=== PATIENT | male | born 1985 | race Hispanic/Latino ===

== ENCOUNTER 2018-12-05 11:22 | Emergency (ER) | payer SELFPAY ==
--- OUTSIDE RECORDS SUMMARY | 2018-12-05 11:26 | XMS REPORT ---
:1985 Author Organization eClinicalWorks Care Team Providers Name Role Phone Arnaud Mitchell Provider Role Unavailable Allergies, Adverse Reactions, Alerts Substance Reaction Event Type N.K.D.A. Info Not Available Non Drug Allergy Problems Problem Type Condition Code Onset Dates Condition Status Assessment Pain in joint of left knee M25.562 Active Assessment Prepatellar bursitis of left knee M70.42 Active Medications Medication Code System Code Instructions Start Date End Date Status Dosage [facility] [id number] 7.5 MG Orally Jan 06, Feb 05, Active 1 tablet Once a day 2017 2017 Results No Known Results Summary Purpose eClinicalWorks Submission
[2018-12-05 13:40] LABS: Absolute Lymphocytes (CBC) 0.7 K/uL (0.7-4.9); Basophils % 0.2 % (0-1.3); Eosinophils % 0.8 % (0-4.4); Hematocrit 46.2 % (39.6-49.0); Lymphocytes % 5.9 % (15.3-44.8); MPV 10.1 fL (7.6-11.3); Monocytes % 7.2 % (3.3-12.3); RBC Red Blood Cell Count 4.99 M/uL (4.33-5.43)
[2018-12-05 13:55] LABS: ALT/SGPT 35 U/L (12-78); AST/SGOT 19 U/L (15-37); Albumin 4.1 g/dL (3.4-5.0); Alkaline Phosphatase 61 U/L (45-117); BUN Blood Urea Nitrogen 14 mg/dL (7-18); Bicarbonate 26 mmol/L (21-32); Bilirubin Direct 0.2 mg/dL (0-0.2); Bilirubin Total 1.3 mg/dL (0.2-1.0); Glucose Level 99 mg/dL (74-106); Lipase 54 U/L (73-393); Potassium 3.5 mmol/L (3.5-5.1); Protein, Total 7.2 g/dL (6.4-8.2); Sodium Level 140 mmol/L (136-145)
[2018-12-05] MEDS ORDERED: DICYCLOMINE HCL 10 MG CAP ONE (14:12)
[2018-12-05] MEDS ORDERED: ONDANSETRON 4 MG/2 ML VIAL ONE (14:12)
[2018-12-05] MEDS ORDERED: NA CHLORIDE 0.9% 1,000 ML ONE (14:13)
--- NOTE | 2018-12-05 14:23 | RAD REPORT ---
EXAM DESCRIPTION: US - Abdomen Exam Limited - 12/05/2018 2:17 pm CLINICAL HISTORY: Abdominal pain. COMPARISON: None. FINDINGS: The gallbladder wall is not thickened. A gallstone is not seen. The biliary tree is normal caliber. Fatty liver suspected IMPRESSION: Unremarkable gallbladder ultrasound.
[2018-12-05 14:50] LABS: Blood Morphology Comment NOT SEEN (NOT SEEN); Platelet Estimate ADEQ; Urine White Blood Cell Casts OK
--- NOTE | 2018-12-05 14:51 | ER ---
Nurse's Notes [facility] Name: Jordan Casillas Age: 33 yrs Sex: Male : 1985 Arrival Date: 12/05/2018 Time: 11:26 Bed 25 Private MD: Diagnosis: Generalized abdominal pain;Nausea and vomiting;Diarrhea, unspecified Presentation: 12/05 11:52 Presenting complaint: Patient states: generalized abd pain, nausea, vomiting, diarrhea aa5 that began last night. Transition of care: patient was not received from another setting of care. Onset of symptoms was November 2018. Risk Assessment: Do you want to hurt yourself or someone else? Patient reports no desire to harm self or others. Initial Sepsis Screen: Does the patient meet any 2 criteria? No. Patient's initial sepsis screen is negative. Does the patient have a suspected source of infection? No. Patient's initial sepsis screen is negative. Care prior to arrival: None. 11:52 Method Of Arrival: Ambulatory aa5 11:52 Acuity: SHASHANK 3 aa5 Historical: - Allergies: 11:53 NKA; aa5 - PMHx: 11:53 None; aa5 - PSHx: 11:53 None; aa5 - Immunization history:: Adult Immunizations unknown. - Social history:: Smoking status: Patient/guardian denies using tobacco. - Ebola Screening: : No symptoms or risks identified at this time. Screenin:02 Abuse screen: Denies threats or abuse. Denies injuries from another. Nutritional mg2 screening: No deficits noted. Tuberculosis screening: No symptoms or risk factors identified. Fall Risk IV access (20 points). Assessment: 14:00 General: Appears in no apparent distress. comfortable, Behavior is calm, cooperative. mg2 Pain: Complains of pain in left upper quadrant and right upper quadrant Pain does not radiate. Pain currently is 5 out of 10 on a pain scale. Quality of pain is described as aching, Pain began gradually, 1 day ago. Is intermittent. Neuro: Level of Consciousness is awake, alert, obeys commands, Oriented to person, place, time, situation. Cardiovascular: Capillary refill < 3 seconds Patient's skin is warm and dry. Respiratory: Airway is patent Respiratory effort is even, unlabored, Respiratory pattern is regular, symmetrical. GI: Bowel sounds present X 4 quads. Abd is soft and non tender X 4 quads. : No signs and/or symptoms were reported regarding the genitourinary system. EENT: No signs and/or symptoms were reported regarding the EENT system. Derm: Skin is intact, is healthy with good turgor, Skin is pink, warm \T\ dry. normal. Musculoskeletal: Circulation, motion, and sensation intact. Capillary refill < 3 seconds. Vital Signs: 11:53 BP 124 / 66; Pulse 89; Resp 16 S; Temp 99.0(TE); Pulse Ox 97% on R/A; Weight 97.52 kg aa5 (R); Height 5 ft. 10 in. (177.80 cm) (R); Pain 6/10; 14:04 Pulse 78; Resp 18; Pulse Ox 100% on R/A; mg2 11:53 Body Mass Index 30.85 (97.52 kg, 177.80 cm) aa5 ED Course: 11:26 Patient arrived in ED. rg4 11:52 Triage completed. aa5 11:52 Arm band placed on. aa5 12:54 Leann Palomo FNP-C is PHCP. kb 12:55 Jose Luis Walsh MD is Attending Physician. kb 13:02 Sunil Fonseca, JUAN JOSE is Primary Nurse. mg2 14:03 Patient has correct armband on for positive identification. mg2 14:03 No provider procedures requiring assistance completed. Inserted saline lock: 20 gauge mg2 in left antecubital area, using aseptic technique. Blood collected. 14:18 US Abdomen Limited In Process Unspecified. EDMS 14:58 IV discontinued, intact, bleeding controlled, No redness/swelling at site. Pressure mg2 dressing applied. Administered Medications: 14:00 Drug: Zofran 4 mg Route: IVP; Site: left antecubital; mg2 14:52 Follow up: Response: No adverse reaction; Pain is decreased ca1 14:00 Drug: NS 0.9% 1000 ml Route: IV; Rate: 1000 ml; Site: left antecubital; mg2 14:52 Follow up: Response: No adverse reaction; IV Status: Completed infusion ca1 14:00 Drug: Bentyl 20 mg Route: PO; mg2 14:52 Follow up: Response: No adverse reaction; Pain is decreased ca1 Outcome: 14:51 Discharge ordered by . kb 14:58 Discharged to home ambulatory. mg2 14:58 Condition: stable 14:58 Discharge instructions given to patient, Instructed on discharge instructions, follow up and referral plans. medication usage, Demonstrated understanding of instructions, follow-up care, medications, Prescriptions given X 2. 15:01 Patient left the ED. mg2 Signatures: Dispatcher [employer] EDMS Leann Palomo, MOBILE HOME LABORER-C MOBILE HOME LABORER-Tawanna Mena RN RN aa5 Tegan Alarcon4 Sunil Fonseca RN RN mg2 Prisca Colon RN RN ca1
--- NOTE | 2018-12-05 14:52 | EDPHYS ---
Physician Documentation [facility] Name: Jordan Casillas Age: 33 yrs Sex: Male : 1985 Arrival Date: 12/05/2018 Time: 11:26 Bed 25 Private MD: ED Physician Jose Luis Walsh HPI: 12/05 13:55 This 33 yrs old Male presents to ER via Ambulatory with complaints of kb Abdominal Pain. 13:55 The patient presents with abdominal pain in the upper abdomen. Onset: The kb symptoms/episode began/occurred last night. The symptoms do not radiate. Associated signs and symptoms: Pertinent positives: diarrhea, nausea. The symptoms are described as constant. Modifying factors: The symptoms are alleviated by nothing, the symptoms are aggravated by nothing. Severity of pain: At its worst the pain was mild in the emergency department the pain is unchanged. The patient has not experienced similar symptoms in the past. The patient has not recently seen a physician. Historical: - Allergies: 11:53 NKA; aa5 - PMHx: 11:53 None; aa5 - PSHx: 11:53 None; aa5 - Immunization history:: Adult Immunizations unknown. - Social history:: Smoking status: Patient/guardian denies using tobacco. - Ebola Screening: : No symptoms or risks identified at this time. ROS: 13:55 Constitutional: Negative for fever, chills, and weight loss, Cardiovascular: Negative kb for chest pain, palpitations, and edema, Respiratory: Negative for shortness of breath, cough, wheezing, and pleuritic chest pain, Back: Negative for injury and pain, MS/Extremity: Negative for injury and deformity, Skin: Negative for injury, rash, and discoloration, Neuro: Negative for headache, weakness, numbness, tingling, and seizure. 13:55 Abdomen/GI: Positive for abdominal pain, nausea, diarrhea. Exam: 13:55 Constitutional: This is a well developed, well nourished patient who is awake, alert, kb and in no acute distress. Head/Face: Normocephalic, atraumatic. ENT: Nares patent. No nasal discharge, no septal abnormalities noted. Tympanic membranes are normal and external auditory canals are clear. Oropharynx with no redness, swelling, or masses, exudates, or evidence of obstruction, uvula midline. Mucous membranes moist. Neck: Trachea midline, no thyromegaly or masses palpated, and no cervical lymphadenopathy. Supple, full range of motion without nuchal rigidity, or vertebral point tenderness. No Meningismus. Chest/axilla: Normal chest wall appearance and motion. Nontender with no deformity. No lesions are appreciated. Cardiovascular: Regular rate and rhythm with a normal S1 and S2. No gallops, murmurs, or rubs. Normal PMI, no JVD. No pulse deficits. Respiratory: Lungs have equal breath sounds bilaterally, clear to auscultation and percussion. No rales, rhonchi or wheezes noted. No increased work of breathing, no retractions or nasal flaring. Skin: Warm, dry with normal turgor. Normal color with no rashes, no lesions, and no evidence of cellulitis. MS/ Extremity: Pulses equal, no cyanosis. Neurovascular intact. Full, normal range of motion. Neuro: Awake and alert, GCS 15, oriented to person, place, time, and situation. Cranial nerves II-XII grossly intact. Motor strength 5/5 in all extremities. Sensory grossly intact. Cerebellar exam normal. Normal gait. 13:55 Abdomen/GI: Inspection: abdomen appears normal, Bowel sounds: normal, in all quadrants, Palpation: soft, in all quadrants, mild abdominal tenderness, in the right upper quadrant and left upper quadrant. Vital Signs: 11:53 BP 124 / 66; Pulse 89; Resp 16 S; Temp 99.0(TE); Pulse Ox 97% on R/A; Weight 97.52 kg aa5 (R); Height 5 ft. 10 in. (177.80 cm) (R); Pain 6/10; 14:04 Pulse 78; Resp 18; Pulse Ox 100% on R/A; mg2 11:53 Body Mass Index 30.85 (97.52 kg, 177.80 cm) aa5 MDM: 13:13 Patient medically screened. kb 13:56 Data reviewed: vital signs, nurses notes. Data interpreted: Pulse oximetry: on room air kb is 97 %. Interpretation: normal. 14:30 Counseling: I had a detailed discussion with the patient and/or guardian regarding: the kb historical points, exam findings, and any diagnostic results supporting the discharge/admit diagnosis, lab results, radiology results, the need for outpatient follow up, a family practitioner, to return to the emergency department if symptoms worsen or persist or if there are any questions or concerns that arise at home. 14:46 ED course: Pt feeling better after treatment.. kb 12/05 13:21 Order name: Basic Metabolic Panel; Complete Time: 13:57 kb 12/05 13:21 Order name: CBC with Diff; Complete Time: 14:54 kb 12/05 13:21 Order name: Hepatic Function; Complete Time: 13:57 kb 12/05 13:21 Order name: Lipase; Complete Time: 13:57 kb 12/05 13:47 Order name: CBC Smear Scan; Complete Time: 14:54 EDMS 12/05 13:57 Order name: US Abdomen Limited; Complete Time: 14:30 kb 12/05 13:21 Order name: IV Saline Lock; Complete Time: 13:49 kb 12/05 13:21 Order name: Labs collected and sent; Complete Time: 13:49 kb Administered Medications: 14:00 Drug: Zofran 4 mg Route: IVP; Site: left antecubital; mg2 14:52 Follow up: Response: No adverse reaction; Pain is decreased ca1 14:00 Drug: NS 0.9% 1000 ml Route: IV; Rate: 1000 ml; Site: left antecubital; mg2 14:52 Follow up: Response: No adverse reaction; IV Status: Completed infusion ca1 14:00 Drug: Bentyl 20 mg Route: PO; mg2 14:52 Follow up: Response: No adverse reaction; Pain is decreased ca1 Disposition: 12/05/18 14:51 Discharged to Home. Impression: Generalized abdominal pain, Nausea and vomiting, Diarrhea, unspecified. - Condition is Stable. - Discharge Instructions: Food Choices to Help Relieve Diarrhea, Adult, Nausea and Vomiting, Adult, [id number], Abdominal Pain, Adult, [id number], Diarrhea, Adult, [id number]. - Prescriptions for Bentyl 20 mg Oral Tablet - take 1 tablet by ORAL route every 6 hours As needed; 20 tablet. Zofran 4 mg Oral Tablet - take 1 tablet by ORAL route every 6 hours As needed; 20 tablet. - Work release form, Medication Reconciliation Form, Thank You Letter, Antibiotic Education, Prescription Opioid Use form. - Follow up: Emergency Department; When: As needed; Reason: Worsening of condition. Follow up: Private Physician; When: 2 - 3 days; Reason: Recheck today's complaints, Continuance of care, Re-evaluation by your physician. Addendum: 12/06/2018 18:52 Co-signature as Attending Physician, Jose Luis Walsh MD. g s Signatures: Dispatcher [employer] ED Leann Palomo, CRAFT RECRUITER-C CRAFT RECRUITER-Ckb Tawanna Burden, RN RN aa5 Jose Luis Walsh MD MD gs Sunil Fonseca RN RN mg2 Prisca Colon RN ca1 Corrections: (The following items were deleted from the chart) 12/05 15:01 14:51 12/05/2018 14:51 Discharged to Home. Impression: Generalized abdominal pain; mg2 Nausea and vomiting; Diarrhea, unspecified. Condition is Stable. Forms are Medication Reconciliation Form, Thank You Letter, Antibiotic Education, Prescription Opioid Use. Follow up: Emergency Department; When: As needed; Reason: Worsening of condition. Follow up: Private Physician; When: 2 - 3 days; Reason: Recheck today's complaints, Continuance of care, Re-evaluation by your physician. kb
== END 2018-12-05 15:01 | disposition home or self-care (01) ==
LOC: ER 11:22
DX: R19.7 Diarrhea, unspecified (principal); R11.2 Nausea with vomiting, unspecified
CPT/HCPCS: 36415; 76705; 80048; 80076; 83690; 85025; 96361; 96374; 99284; J2405; J7030